=== PATIENT | female | born 1965 | race Caucasian/White ===

== ENCOUNTER 2021-12-22 09:12 | Outpatient (CLI) | payer OTHER | END 2021-12-22 09:13 | disposition home or self-care (01) | LOC: CSHMAMMO 09:12 | PROVIDERS: ATTEND Obstetrics & Gynecology | DX: Z12.31 Encounter for screening mammogram for malignant neoplasm of breast (principal) | CPT/HCPCS: 77063; 77067 ==

== ENCOUNTER 2023-12-24 15:36 | Outpatient (CLI) | payer OTHER | END 2023-12-24 15:37 | disposition home or self-care (01) | LOC: CSHMAMMO 15:36 | PROVIDERS: ATTEND Obstetrics & Gynecology | DX: Z12.31 Encounter for screening mammogram for malignant neoplasm of breast (principal) | CPT/HCPCS: 77063; 77067 ==